=== PATIENT | female | born 1940 ===

== ENCOUNTER 2017-05-03 09:41 | Emergency (ER) | payer OTHER ==
[~2017-05-03] VITALS: Ht 167.6 cm; Wt 59.0 kg
[2017-05-03] MEDS ORDERED: SULFAMETHOXAZOL1 TA1 PO ×2 (12:07→12:08)
== END 2017-05-03 12:29 | disposition home or self-care (01) ==
LOC: ER 09:41
DX: L02.415 Cutaneous abscess of right lower limb (principal); L03.115 Cellulitis of right lower limb

== ENCOUNTER 2017-05-05 08:44 | Emergency (ER) | payer OTHER ==
[~2017-05-05] VITALS: Ht 167.6 cm; Wt 65.8 kg
[~2017-05-05 08:44] MED LIST: SULFAMETHOXAZOL1 TA1 PO
== END 2017-05-05 10:11 | disposition home or self-care (01) ==
LOC: ER 08:44
DX: L97.819 Non-pressure chronic ulcer of other part of right lower leg with unspecified severity (principal)